=== PATIENT | male | born 1995 | race Caucasian/White ===

== ENCOUNTER 2023-05-05 23:48 | Emergency (ER) | payer OTHER ==
[2023-05-06] MEDS: Ondansetron 4 MG Tab.DIS PO ONE ×2 (00:03→00:34)
[2023-05-06] MEDS: Ketorolac 30 MG/ML SDV IM ONE (00:03)
[2023-05-06] MEDS: SUMAtriptan 6 MG/0.5 ML SDV SUBCUT ONE (00:03)
== END 2023-05-06 01:05 | disposition home or self-care (01) ==
LOC: FB.ED 23:48
DX: G43.709 Chronic migraine without aura, not intractable, without status migrainosus (principal); F17.210 Nicotine dependence, cigarettes, uncomplicated
CPT/HCPCS: 96372; 99283; J1885; J3030; Q0162